=== PATIENT | female | born 2005 | race Caucasian/White ===

== ENCOUNTER 2025-03-25 00:11 | Emergency (ER) | payer OTHER ==
[2025-03-25] MEDS ORDERED: Ibuprofen 200 MG TAB ONE (00:26)
== END 2025-03-25 01:45 | disposition home or self-care (01) ==
LOC: CSHERS 00:11
DX: M79.661 Pain in right lower leg (principal); G62.9 Polyneuropathy, unspecified; E66.01 Morbid (severe) obesity due to excess calories